=== PATIENT | female | born 1985 | race Caucasian/White ===

== ENCOUNTER 2020-08-10 12:01 | Emergency (ER) | payer SELFPAY ==
[2020-08-10 12:28] LABS: Bilirubin Negative (Negative); Blood, Urine Moderate (Negative); Glucose, Urine (Dipstick) Negative (Negative); Ketone, Urine Negative (Negative); Leukocyte Small (Negative); Nitrite Negative (Negative); Protein, Urine (Dipstick) 30 mg/dL (Neg-Trace); Specific Gravity, Urine 1.015 (1.002-1.036); Urobilinogen 0.2 mg/dL (Less than 2)
[2020-08-10 12:29] LABS: Clarity Hazy (Clear); Pregnancy Test - Urine (BHCG) Negative (Negative); Pregu Control Background? CLEAR/WHITE (CLR/WHITE); Pregu Control Bar Appear? YES (CONTROL BAR); Specific Gravity 1.015 (1.002-1.036)
[2020-08-10 12:32] LABS: Bacteria/HPF Rare-Few HPF (None Seen); WBC/HPF 21-50 HPF (0-3)
[2020-08-10] MEDS ORDERED: Ondansetron PF 4 MG/2 ML Vial ONE (12:38)
[2020-08-10] MEDS ORDERED: Ketorolac Tromethamine 30 MG/ML VIAL ONE (12:38)
[2020-08-10 12:42] LABS: #Basophils 0.2 thou/uL (0.0-0.2); #Eosinphils 0.1 thou/uL (0.0-0.7); #Lymphocytes 1.8 thou/uL (1.20-3.40); #Monocytes 0.6 thou/uL (0.11-0.59); #Neutrophils 7.9 thou/uL (1.40-6.50); %Basophils 1.7 % (0.0-1.0); %Eosinophils 1.2 % (0.0-10.0); %Lymphocytes 16.9 % (21.0-51.0); %Monocytes 5.4 % (0.0-10.0); %Neutrophils 74.8 % (42.0-75.0); Hemoglobin 14.4 g/dL (12.0-16.0); Mean Corpuscular HGB CONC 32.6 g/dL (32.0-36.0); Mean Corpuscular Hemoglobin 30.6 pg (27.0-31.0); Mean Corpuscular Volume 93.8 fL (78.0-98.0); Mean Platelet Volume 7.1 fL (7.4-10.4); Platelet Count 270 thou/uL (130-400); RBC Distribution Width 12.2 % (11.5-14.5); Red Blood Cell (RBC) Count 4.69 mill/uL (4.20-5.40); White Blood Cell (WBC) Count 10.5 thou/uL (4.8-10.8)
[2020-08-10 12:59] LABS: ALT (SGPT) 14 U/L (8-55); AST (SGOT) 16 U/L (5-34); Albumin 4.6 g/dL (3.5-5.0); Alkaline Phosphatase 55 U/L (40-110); Anion Gap 16 mmol/L (10-20); BUN (Urea Nitrogen) 15 mg/dL (7.0-18.7); Bilirubin, Total 0.3 mg/dL (0.2-1.2); Calc. Creatinine Clearance 0 mL/min (70-130); Calcium 9.4 mg/dL (7.8-10.44); Carbon Dioxide 20 mmol/L (22-29); Chloride 105 mmol/L (98-107); Globulin 3.7 g/dL (2.4-3.5); Glucose 134 mg/dL (70-105); Potassium 4.2 mmol/L (3.5-5.1); Protein, Total 8.3 g/dL (6.0-8.3); Sodium 137 mmol/L (136-145)
--- NOTE | 2020-08-10 13:10 | CT ---
CT ABDOMEN AND PELVIS PERFORMED WITHOUT CONTRAST ENHANCEMENT: HISTORY: Right-sided flank pain. FINDINGS: The lung bases are clear. The liver and spleen as well as pancreas and gallbladder regions appear unremarkable. Right and left adrenal glands are normal. Several lower pole right renal calculi are seen. The righ t collecting system is markedly dilated with prominent calyces. There is either dilated calyces also seen in the upper pole of the right kidney or this represents adjacent cyst. The degree of dilatati on suggests this is more of a chronic-appearing process. There is moderate right-sided hydronephrosi s and hydroureter present. The right ureter is difficult to visualize below the level of the pelvic brim where it appears to become less dilated, but I do not see a definite calculus. No calculus is s een within the bladder. No significant periaortic or mesenteric adenopathy. There are small periaortic nodes, but none of th rai appear significantly enlarged. CT OF PELVIS PERFORMED WITHOUT CONTRAST ENHANCEMENT: Appendix is normal. No adenopathy, mass, or free fluid. IMPRESSION: 1. Markedly dilated right collecting system and also moderate dilatation of the right ureter to the level of the pelvic brim. Below this level it is very difficult to follow the ureter. It appears so mewhat less dilated. I do not see any ureteral calculus. There are several lower pole right renal c alculi. This degree of dilatation would suggest this is more of a chronic process. It is possible t hat the patient has passed a stone recently. The other possibility is some type of sloughed papillae causing this or non-radiopaque calculus causing this appearance. 2. Normal appendix. 3. No left-sided renal calculi. POS: [facility] [place]
== END 2020-08-10 13:35 | disposition home or self-care (01) ==
LOC: MADERS 12:01
DX: R10.9 Unspecified abdominal pain (principal); R11.2 Nausea with vomiting, unspecified; N18.9 Chronic kidney disease, unspecified; J45.909 Unspecified asthma, uncomplicated; F17.210 Nicotine dependence, cigarettes, uncomplicated; Z87.442 Personal history of urinary calculi; Z79.899 Other long term (current) drug therapy
CPT/HCPCS: 74176; 80053; 81003; 81015; 81025; 83605; 85025; 96374; 96375; J1885; J2405